=== PATIENT | male | born 1985 | race Two or more races ===

== ENCOUNTER 2023-06-07 16:54 | Emergency (ER) | payer SELFPAY ==
[2023-06-07] MEDS ORDERED: Aspirin 81 MG Tab.Chew PO ONE (17:07)
[2023-06-07 17:12] LABS: BASOPHILS PERCENT AUTO 0.5 % (0.0-1.5); EOSINOPHILS ABSOLUTE AUTO 0.2 K/uL (0.0-0.7); EOSINOPHILS PERCENT AUTO 2.7 % (0.0-7.0); HEMATOCRIT 38.9 % (38.0-50.0); LYMPHOCYTES ABSOLUTE AUTO 2.2 K/uL (0.6-2.4); LYMPHOCYTES PERCENT AUTO 28.5 % (16.0-40.0); MEAN CORPUSCULAR HEMOGLOBIN 27.9 pg (27.0-32.0); MEAN CORPUSCULAR HGB CONC 33.4 g/dL (31.0-37.0); MEAN CORPUSCULAR VOLUME 83.5 fL (80.0-98.0); MONOCYTES ABSOLUTE AUTO 0.5 K/uL (0.0-0.8); MONOCYTES PERCENT AUTO 6.5 % (0.0-15.0); NEUTROPHILS ABSOLUTE AUTO 4.7 K/uL (1.4-5.7); NEUTROPHILS PERCENT AUTO 61.8 % (48.0-80.0); NRBC ABSOLUTE 0 K/uL; PLATELET COUNT,PLT 234 K/uL (150-400); RED BLOOD CELL COUNT 4.66 M/uL (4.50-5.90); WHITE BLOOD CELL COUNT,WBC 7.54 K/uL (4.0-11.0)
[2023-06-07 18:01] LABS: A/G RATIO 1.1 (0.9-1.6); ALBUMIN 3.6 g/dL (3.4-5.0); BILIRUBIN TOTAL 0.4 mg/dL (0.2-1.0); CALCIUM 8.6 mg/dL (8.5-10.1); CARBON DIOXIDE,CO2 28.9 mmol/L (21.0-32.0); CREATININE 0.9 mg/dL (0.8-1.3); EST CRCL DRUG DOSING (CG) 116.03 mL/min; PROTEIN TOTAL,TP 6.9 g/dL (6.4-8.2)
[2023-06-07 18:25] VITALS: BP 138/79; PULSE 66
== END 2023-06-07 18:22 | disposition home or self-care (01) ==
LOC: MW.ED 16:54
DX: R07.89 Other chest pain (principal); M79.641 Pain in right hand
CPT/HCPCS: 36415; 71045; 80053; 84484; 85025; 93005; 99285; A9270; 93010

== ENCOUNTER 2023-11-18 20:40 | Emergency (ER) | payer SELFPAY ==
[2023-11-18 21:46] VITALS: BP 145/91; PULSE 78
== END 2023-11-18 22:08 | disposition home or self-care (01) ==
LOC: MW.ED 20:40
DX: Z02.89 Encounter for other administrative examinations (principal)
CPT/HCPCS: 99283